=== PATIENT | female | born 1980 | race Caucasian/White ===

== ENCOUNTER 2016-08-01 10:36 | Day surgery (SDC) | payer BC ==
[~2016-08-01] VITALS: Ht 162.6 cm; Wt 68.2 kg
[~2016-08-01 10:36] MED LIST: ENDOCET 5-3251 EACH PO; MOTRIN800 MG PO; Motrin PO; PREFERA-OB P1 TABLET PO; Percocet 5/325,Endoc PO
[2016-08-01 11:18] VITALS: BP 110/70
[2016-08-01 11:20] LABS: HEMATOCRIT 39.9 % (36.0-46.0); MCH 29.3 PG (29.0-34.0); MCHC 34.3 G/DL (30.0-36.0); MCV 85.4 FL (83-99); MEAN PLAT.VOLUME 10.5 uM^3 (9.5-12.4); PLATELET COUNT 283 K/uL (156-360); RBC DIS.WIDTH-CV 12.4 % (11.8-14.6); RBC DIS.WIDTH-SD 38.5 % (39-53); RED BLOOD COUNT 4.67 M/uL (3.80-5.20); WHITE BLOOD COUNT 9.1 K/uL (4.1-10.2)
[2016-08-01 13:25] VITALS: BP 96/61
[2016-08-01 14:20] VITALS: BP 91/55
[2016-08-01 14:52] VITALS: BP 97/58
== END 2016-08-01 15:07 | disposition home or self-care (01) ==
LOC: SDC 10:36
PROVIDERS: Obstetrics & Gynecology
PROC: 10D17ZZ Extraction of Products of Conception, Retained, Via Natural or Artificial Opening (ICD-10-PCS; principal; 2016-08-01)
DX: O02.1 Missed abortion (principal)
CPT/HCPCS: 85027; 86900; 86901; 88305; J0131; J1100; J1885; J2250; J2405; J2765; J3010